=== PATIENT | female | born 1985 | race Caucasian/White ===

== ENCOUNTER 2019-04-07 10:58 | Emergency (ER) | payer BC ==
--- NOTE | 2019-04-07 11:24 | ED ---
Dizziness - HPI Summary HPI Summary: Patient is a 34 y/o F presenting to the ED for a chief complaint of dizziness that began on 04/06/19. Patient is present with a friend. Patient states that she was driving home from a conference in [place] when she began to feel a room spinning sensation. She describes her dizziness as feeling "wobbly" and having balance problems. On 04/07/19, she notes having neck pain, nausea, and vomiting that she describes as neon yellow bile. She also notes a headache one day ago that has since resolved. Patient denies tinnitus, changes in hearing, vision changes, weakness, numbness, or paresthesia. Patient took 600 mg ibuprofen on 04/06/19 without relief. The dizziness worsens with change in position. Patient went to a chiropractor one week ago and had neck manipulation performed at that time. She admits positive sick contact with someone at the conference she attended that had influenza-like symptoms. Any significant PMHx is denied, but PSHx is significant for wisdom tooth surgery. Patient denies tobacco, alcohol, or drug use. - History Of Current Complaint Chief Complaint: EDDizziness Stated Complaint: POSS VERTIGO PER PT Time Seen by Provider: 04/07/19 11:08 Hx Obtained From: Patient Onset/Duration: Suddenly Timing: Constant Severity Initially: Moderate Severity Currently: Moderate Character: Room Spinning, Dizzy Aggravating Factor(s): Change In Head Position Alleviating Factor(s): Nothing Associated Signs And Symptoms: Positive: Nausea, Vomiting. Negative: Tinnitus, Visual Changes, Fever - Allergies/Home Medications Allergies/Adverse Reactions: Allergies Allergy/AdvReac Type Severity Reaction Status Date / Time amoxicillin Allergy Hives Verified 04/07/19 11:03 red meat Allergy Hives Uncoded 04/07/19 11:03 Home Medications: Home Medications Cold Multi-Symptom Caplet 1 tab PO DAILY PRN 04/07/19 [History Confirmed ] Ibuprofen TAB* [Advil TAB*] 200 mg PO Q6H PRN 04/07/19 [History Confirmed ] Multivitamins/Minerals TAB* [Theragran/minerals TAB*] 1 tab PO DAILY 04/07/19 [ History Confirmed 04/07/19] PMH/Surg Hx/FS Hx/Imm Hx Previously Healthy: Yes Endocrine/Hematology History: Denies: Hx Diabetes Cardiovascular History: Denies: Hx Hypercholesterolemia, Hx Hypertension Sensory History: Denies: Hx Legally Blind, Hx Deafness Opthamlomology History: Denies: Hx Legally Blind EENT History: Denies: Hx Deafness - Surgical History Surgical History: Yes Surgery Procedure, Year, and Place: [place] teeth Infectious Disease History: No Infectious Disease History: Denies: Traveled Outside the [place] in Last 30 Days - Family History Known Family History: Negative: Cardiac Disease, Hypertension, Diabetes - Social History Occupation: Employed Full-time Hx Substance Use: No Substance Use Type: Reports: None Hx Tobacco Use: No Smoking Status (MU): Never Smoked Tobacco Review of Systems Negative: Fever Negative: Blurred Vision - Negative vision changes Negative: Other - Negative tinnitus or changes in hearing Positive: Vomiting, Nausea Positive: Myalgia - Neck pain Positive: Headache - Resolved. Negative: Weakness, Paresthesia, Numbness All Other Systems Reviewed And Are Negative: Yes Physical Exam - Summary Physical Exam Summary: Constitutional: Well-developed, Well-nourished, Alert. (-) Distressed Skin: Warm, Dry HENT: Normocephalic; Atraumatic Eyes: Conjunctiva normal. Nystagmus on rightward gaze. Neck: Musculoskeletal ROM normal neck. (-) JVD, (-) Stridor, (-) Tracheal deviation Cardio: Rhythm regular, rate normal, Heart sounds normal; Intact distal pulses. Radial pulses are 2+ and symmetric. (-) Murmur Pulmonary/Chest wall: Effort normal. (-) Respiratory distress, (-) Wheezes, (-) Rales Abd: Soft. (-) Tenderness, (-) Distension, (-) Guarding, (-) Rebound Musculoskeletal: (-) Edema Lymph: (-) Cervical adenopathy Neuro: Alert, Oriented x3, Strength normal, Cranial nerves II-XII are grossly intact. (-) Dysmetria, (-) Nystagmus, (-) Ataxia by finger to nose testing, (-) Sensory deficit. Psych: Mood and affect Normal Triage Information Reviewed: Yes Vital Signs On Initial Exam: Initial Vitals Temp Pulse Resp BP Pulse Ox 98.3 F 83 16 127/78 100 04/07/19 10:59 04/07/19 10:59 04/07/19 10:59 04/07/19 10:59 04/07/19 10:59 Vital Signs Reviewed: Yes Procedures - Sedation Patient Received Moderate/Deep Sedation with Procedure: No Diagnostics - Vital Signs Vital Signs Temp Pulse Resp BP Pulse Ox 04/07/19 10:59 98.3 F 83 16 127/78 100 - Laboratory Result Diagrams: 04/07/19 11:32 04/07/19 11:32 Lab Statement: Any lab studies that have been ordered have been reviewed, and results considered in the medical decision making process. - CT Head CTA CT Interpretation Completed By: Radiologist Summary of CT Findings: Head CTA IMPRESSION: 1. No acute intracranial abnormality (MRI is more sensitive for acute infarct, especially the posterior fossa). 2. An incidental nonspecific filling defect in the right cavernous sinus could be reflective of mixing artifact. Further characterization by contrast enhanced brain MRI is recommended when clinically appropriate. 3. No acute arterial occlusion, severe stenosis or aneurysm. 4. No acute occlusive disease or severe stenosis in the neck. Reviewed by Dr. Durant. Re-Evaluation - Re-Evaluation First Eval Re-Evaluation Time: 12:18 Change: Improved Comment: At 12:18, patient feels better, she is able to open her eyes more. Received Zofran and meclizine. Second Eval Re-Evaluation Time: 12:46 Change: Unchanged Comment: At 12:46, patient is still feeling dizzy. I will give IV Ativan and then reassess. Third Eval Re-Evaluation Time: 13:25 Change: Improved Comment: At 13:25, patient is feeling much better and will get a CTA. Dizzy Course/Dx - Course Course Of Treatment: Patient is here with vertigo. Patient started having symptoms yesterday where she is feeling off balance. Today, patient woke up and was severely vertiginous and vomiting. Upon arrival, patient appeared very vertiginous with her eyes closed. Patient didn't have nystagmus to the right. A Kenneth-Hallpike maneuver was attempted with no relief. Patient was given a cuisine and Zofran with mild improvement. Patient was given Ativan. Patient is not improving at an expected rates a CTA was performed which showed no evidence of any vascular abnormality. Patient did have a filling defect in her sinus and was told she needs to have an MRI as an outpatient. The neuroradiologist did not believe this correlated with her symptoms. Patient was offered admission but declined. - Diagnoses Provider Diagnoses: Vertigo Discharge ED - Sign-Out/Discharge Documenting (check all that apply): Patient Departure - Discharge - Discharge Plan Condition: Stable Disposition: HOME Prescriptions: Meclizine TAB* [Antivert 12.5 TAB*] 25 mg PO TID PRN #20 tab PRN Reason: Vertigo Ondansetron ODT TAB* [Zofran 4 MG Odt TAB*] 4 mg PO Q8H PRN #12 tab.odt PRN Reason: Vomiting Patient Education Materials: Vertigo (ED) Referrals: [facility] [Outside] Miguelangel Crawley MD [Medical Doctor] - Additional Instructions: PLEASE RETURN TO EMERGENCY DEPARTMENT FOR INABILITY TO TOLERATE FLUIDS FOR MORE THAN 12 HOURS, ONE-SIDED WEAKNESS, SLURRED SPEECH, OR ANY NEW OR WORSENING SYMPTOMS. Please follow up with your primary care physician and an ENT physician. Please make all follow-ups in 1-3 days unless I advise you otherwise. You need an MRI of your brain to evaluate for a brain tumor. Take your medications as prescribed. - Billing Disposition and Condition Condition: STABLE Disposition: Home - Attestation Statements Document Initiated by Scottibconchita: Yes Documenting Scribe: Sandy Izquierdo Provider For Whom Nancy is Documenting (Include Credential): Andres Duratn MD Scribe Attestation: Sandy Perkins, scribed for Andres Durant MD on 04/07/19 at 1828. Scribe Documentation Reviewed: Yes Provider Attestation: The documentation as recorded by the Sandy goins accurately reflects the service I personally performed and the decisions made by , Andres Durant MD Status of Scribe Document: Viewed
[2019-04-07] MEDS ORDERED: Ondansetron ODT TAB* 4 MG SL ONE ×2 (11:26→15:12)
[2019-04-07] MEDS ORDERED: Meclizine TAB* 12.5 MG PO ONE (11:26)
[2019-04-07 12:00] LABS: ABS Lymphocytes 0.8 10^3/ul (1.0-4.8); ABS Monocytes 0.3 10^3/ul (0-0.8); ABS Neutrophils 6.6 10^3/ul (1.5-7.7); Eosinophil % 0.4 %; Hematocrit 40 % (35-47); Hemoglobin 13.6 g/dL (12.0-16.0); Lymphocyte % 10.7 %; Mean Corpuscular HGB Conc 35 g/dL (31-36); Mean Corpuscular Hemoglobin 31 pg (27-31); Mean Corpuscular Volume 89 fL (80-97); Mean Platelet Volume 9.2 fL (7.4-10.4); Platelet Count 235 10^3/uL (150-450); Red Blood Count 4.46 10^6 /uL (3.70-4.87); Red Cell Distribution Width 12 % (10-15); White Blood Count 7.8 10^3/uL (3.5-10.8)
[2019-04-07 12:20] LABS: ALT 11 U/L (7-52); AST 13 U/L (13-39); Albumin 4.1 g/dL (3.2-5.2); Albumin/Globulin Ratio 1.6 (1-3); Alkaline Phosphatase 42 U/L (34-104); Anion Gap 6 mmol/L (2-11); BUN/Creatinine Ratio 26.5 (8-20); Blood Urea Nitrogen 18 mg/dL (6-24); CO2 Carbon Dioxide 24 mmol/L (22-32); Chloride 109 mmol/L (101-111); EGFR African American 120.6 (>60); EGFR Non-African American 99.6 (>60); Globulin 2.6 g/dL (2-4); Glucose 137 mg/dL (70-100); Potassium 3.6 mmol/L (3.5-5.0); Sodium 139 mmol/L (135-145); Total Protein 6.7 g/dL (6.4-8.9)
[2019-04-07 12:25] LABS: HCG Pregnancy < 0.60 mIU/mL
[2019-04-07] MEDS ORDERED: Lorazepam PYXIS KEY PRN (12:46)
[2019-04-07] MEDS ORDERED: LORazepam INJ* 2 MG/ML 1 ML VIAL IV PUSH ONE (12:46)
[2019-04-07] MEDS ORDERED: NS 0.9% 1000 ML** 1,000 ML IV ONE (12:46)
[2019-04-07] MEDS ORDERED: Iohexol 350* (CONTRAST) 500 ML MDV IV ONE (13:32)
[2019-04-07 15:19] VITALS: BP 110/65
== END 2019-04-07 15:18 | disposition home or self-care (01) ==
LOC: ED 10:58
DX: R42 Dizziness and giddiness (principal); Z88.0 Allergy status to penicillin
CPT/HCPCS: 36415; 70496; 70498; 80053; 84702; 85025; 96361; 96374; 99283; A9270-GY; J2060; Q9967